=== PATIENT | female | born 1990 | race Caucasian/White ===

== ENCOUNTER 2017-03-14 07:38 | Emergency (ER) | payer MEDICAID ==
[~2017-03-14] VITALS: Ht 167.6 cm; Wt 77.1 kg
[~2017-03-14 07:38] MED LIST: ABILIFY; ALPRAZOLAM; APAP500 PO; COMPAZINE10 M1; CYMBALTA; ERYTHROMYCIN250 M1 PO; MACROBID 100 M100 M1 PO; NAPROSYN500 MG PO; NOHOMEMEDICATIONS; PHENERGAN 25 MG25 M1 PO; PRENATAL MULTI1 EAC2 PO; PROZAC 20 MG20 M1; TESSALON PERLE100 MG PO; VALIUM5 MG PO; ZANTAC; ZOFRAN ODT4 MG PO
[2017-03-14] MEDS ORDERED: NOHOMEMEDICATIONS (07:50)
[2017-03-14] MEDS ORDERED: NORCO 5-325 TA1 EACH PO (08:16)
[2017-03-14 08:30] VITALS: BP 133/83
== END 2017-03-14 08:30 | disposition home or self-care (01) ==
LOC: M.ERS 07:38
DX: S92.354A Nondisplaced fracture of fifth metatarsal bone, right foot, initial encounter for closed fracture (principal); F32.9 Major depressive disorder, single episode, unspecified; F17.210 Nicotine dependence, cigarettes, uncomplicated; Z87.448 Personal history of other diseases of urinary system; Z88.0 Allergy status to penicillin; X58.XXXA Exposure to other specified factors, initial encounter; Y93.01 Activity, walking, marching and hiking; Y92.89 Other specified places as the place of occurrence of the external cause; Y99.8 Other external cause status

== ENCOUNTER 2017-06-26 07:00 | Emergency (ER) | payer OTHER, MEDICAID ==
[~2017-06-26] VITALS: Ht 162.6 cm; Wt 61.2 kg
[~2017-06-26 07:00] MED LIST changes: +NORCO 5-325 TA1 EACH PO
[2017-06-26] MEDS ORDERED: XANAX1 MG PO (07:14)
[2017-06-26] MEDS ORDERED: ANTIDEPRESSANT (07:15)
[2017-06-26 08:27] VITALS: BP 122/68
== END 2017-06-26 08:27 | disposition home or self-care (01) ==
LOC: M.ERS 07:00
DX: S00.83XA Contusion of other part of head, initial encounter (principal); F41.9 Anxiety disorder, unspecified; F32.9 Major depressive disorder, single episode, unspecified; F17.210 Nicotine dependence, cigarettes, uncomplicated; Z88.0 Allergy status to penicillin; W18.39XA Other fall on same level, initial encounter; Y93.89 Activity, other specified; Y92.89 Other specified places as the place of occurrence of the external cause; Y99.8 Other external cause status